=== PATIENT | female | born 1975 | race Caucasian/White ===

== ENCOUNTER 2016-12-26 01:22 | Emergency (ER) | payer MEDICAID ==
[~2016-12-26] VITALS: Ht 154.9 cm; Wt 74.7 kg
[2016-12-26 01:31] VITALS: BP 135/88
== END 2016-12-26 02:23 | disposition home or self-care (01) ==
LOC: ED 02:17
DX: J01.00 Acute maxillary sinusitis, unspecified (principal); J01.10 Acute frontal sinusitis, unspecified; J00 Acute nasopharyngitis [common cold]; Z90.49 Acquired absence of other specified parts of digestive tract; F17.200 Nicotine dependence, unspecified, uncomplicated
CPT/HCPCS: 99283; 99406